=== PATIENT | female | born 1955 | race Two or more races ===

== ENCOUNTER 2018-08-18 13:31 | Emergency (ER) | payer OTHER ==
[~2018-08-18] VITALS: Ht 154.9 cm; Wt 59.0 kg
[~2018-08-18 13:31] MED LIST: HYD2.5O TP; LEVE750T3 PO
[2018-08-18 13:42] VITALS: BP 151/113
--- NOTE | 2018-08-18 14:27 | NUR ---
PATIENT BIB FAMILY C/O EPIGASTRIC PAIN, HEADACHE ,WEAKNESS , POOR APETITE, N/V/D X 3 WEEKS. PT STATES HAS DIZZINESS TODAY AT STORE. DENIES FELL. AMBULATE WITH ASSIST, LUNGS CLEAR BL, C/O SOB; HR EVEN AND REGULAR; PATIENT STATES PAIN OF 8/10 AT THIS TIME; VSS; PATIENT POSITIONED FOR COMFORT; HOB ELEVATED; BEDRAILS UP X2; BED DOWN. ER MD MADE AWARE OF PT STATUS.
--- NOTE | 2018-08-18 14:35 | NUR ---
Patient being evaluated by physician at bedside.
[2018-08-18] MEDS ORDERED: MORPHINE SULFATE 2 MG/ML SYR IVP ONE (14:45)
[2018-08-18] MEDS ORDERED: PANTOPRAZOLE 40 MG INJ VIAL IVP ONE (14:45)
[2018-08-18] MEDS ORDERED: ONDANSETRON 4 MG/2 ML VIAL IVP ONE (14:45)
[2018-08-18] MEDS ORDERED: NACL 0.9% 1,000 ML IV ONE (14:45)
[2018-08-18 15:54] LABS: POTASSIUM 3.7 mmol/L (3.5-5.1)
[2018-08-18 15:55] LABS: ALBUMIN 3.7 g/dL (3.4-5.0); ANION GAP 13.2 (8-16); CARBON DIOXIDE 21.5 mmol/L (21-32); TOTAL BILIRUBIN 0.3 mg/dL (0.0-1.0)
[2018-08-18 15:56] LABS: BASOPHILS % (AUTO) 0.5 % (0.0-2.0); EOSINOPHILS % (AUTO) 0.4 % (0.0-4.0); HEMATOCRIT 39.5 % (36-48); HEMOGLOBIN 13.1 g/dL (12.0-16.0); LYMPHOCYTES # (AUTO) 0.9 K/uL (2.5-16.5); LYMPHOCYTES % (AUTO) 15.9 % (20.5-51.1); MEAN CORPUSCULAR HEMOGLOBIN 30 pg (27-31); MEAN CORPUSCULAR HGB CONC 33 g/dL (33-37); MONOCYTES # (AUTO) 0.4 K/uL (0.8-1.0); MONOCYTES % (AUTO) 7.8 % (1.7-9.3); NEUTROPHILS # (AUTO) 4.1 K/uL (1.8-7.7); NEUTROPHILS % (AUTO) 75.4 % (42.2-75.2); PLATELET COUNT (AUTO) 252 K/uL (140-450); RED BLOOD CELL COUNT(AUTO) 4.39 MIL/uL (4.20-5.40); RED CELL DISTRIBUTION WIDTH 13.5 % (11.6-13.7); WHITE BLOOD COUNT (AUTO) 5.4 K/uL (4.8-10.8)
[2018-08-18 16:40] VITALS: BP 142/81
--- NOTE | 2018-08-18 16:40 | NUR ---
Patient discharged with v/s stable. Written and verbal after care instructions given and explained. Patient alert, oriented and verbalized understanding of instructions. Ambulatory with steady gait. All questions addressed prior to discharge. ID band removed. Patient advised to follow up with PMD. Rx of OMEPRAZOLE, AMBIEN, ZOFRAN given. Patient educated on indication of medication including possible reaction and side effects. Opportunity to ask questions provided and answered.
== END 2018-08-18 16:40 | disposition home or self-care (01) ==
LOC: MED 13:31
DX: G47.00 Insomnia, unspecified (principal); T39.315A Adverse effect of propionic acid derivatives, initial encounter; Y92.89 Other specified places as the place of occurrence of the external cause; I10 Essential (primary) hypertension; Z90.49 Acquired absence of other specified parts of digestive tract; Z79.899 Other long term (current) drug therapy
CPT/HCPCS: 36415; 80053; 83690; 85025; 93005; 96361; 96374; 96375; 99285; C9113; J2270; J2405; J7030